=== PATIENT | male | born 2000 | race Two or more races ===

== ENCOUNTER → 2024-10-23 | Outpatient (CLI) | payer BC, SELFPAY ==
--- NOTE | 2024-10-23 16:35 | XR_ITS ---
EXAMINATION: Ankle, right 3 views . Technique: Ankle AP, oblique, lateral 3 views Date and time of exam: October 23, 2024 1640 hours INDICATIONS: Injury to the ankle 2 weeks ago, ankle pain FINDINGS: No fracture or dislocation No foreign body IMPRESSION: No acute fracture
== END | disposition home or self-care (01) ==
PROVIDERS: PCP Nurse Practitioner Family; Referring Provider Registered Nurse; Visit Provider Registered Nurse
DX: S99.911A Unspecified injury of right ankle, initial encounter (principal); X58.XXXA Exposure to other specified factors, initial encounter
CPT/HCPCS: 73610

== ENCOUNTER → 2024-12-18 | Outpatient (CLI) | payer OTHER, SELFPAY ==
--- NOTE | 2024-12-18 16:15 | XR_ITS ---
EXAMINATION: Cervical spine, 5 views Technique: Cervical spine AP, AP odontoid, lateral, bilateral obliques, 5 views Exam date and time: December 18, 2024 1633 hours INDICATIONS: Neck pain beginning 5 days ago. FINDINGS: Adequate alignment cervical vertebral bodies. No cervical fracture. No cervical disc narrowing. No significant neural foraminal stenosis IMPRESSION: No cervical fracture or arthritic change
--- NOTE | 2024-12-18 16:15 | XR_ITS ---
Examination: Shoulder,right, 3 views Technique: Shoulder AP internal rotation, AP external rotation, Y view shoulder, 3 views Exam date and time :December 18, 2024 1633 hours INDICATIONS: Right rib pain beginning 5 days ago. FINDINGS: 5 mm AC joint separation No further fractures or dislocation Negative for calcific tendinitis. IMPRESSION: 5 mm AC joint separation
== END | disposition home or self-care (01) ==
PROVIDERS: PCP Nurse Practitioner Family; Referring Provider Nurse Practitioner Family; Visit Provider Nurse Practitioner Family
DX: M54.2 Cervicalgia (principal); S43.101A Unspecified dislocation of right acromioclavicular joint, initial encounter; X58.XXXA Exposure to other specified factors, initial encounter
CPT/HCPCS: 72050; 73030